=== PATIENT | female | born 1940 | race Caucasian/White ===

== ENCOUNTER 2016-11-13 08:48 | Outpatient (CLI) ==
--- NOTE | 2016-11-13 10:21 | MAMMO ---
EXAM: Left digital screening mammogram History: Screening, history of right mastectomy Comparison: Left screening mammogram 10/01/2015 Findings: MLO and CC views of the left breast demonstrate scattered fibroglandular breast parenchym a. There are no dominant masses, no suspicious microcalcifications and no architectural distortions Impression: Stable negative left mammogram. Recommend followup routine screening left mammogram in 1 year. BIRADS 1
== END 2016-11-13 08:49 | disposition home or self-care (01) ==
LOC: RAD 08:48
PROVIDERS: ATTEND Internal Medicine Hematology & Oncology
DX: Z12.31 Encounter for screening mammogram for malignant neoplasm of breast (principal)

== ENCOUNTER 2018-02-08 08:40 | Outpatient (CLI) ==
--- NOTE | 2018-02-09 09:52 | MAMMO ---
EXAM: Digital screening mammogram with tomosynthesis HISTORY: Screening, history of right mastectomy. COMPARISON: 11/13/2016 FINDINGS: Digital MLO and CC views of the left breast were performed. Tomosynthesis was performed. Computer aided detection utilized. There are scattered fibroglandular densities. There is no evid ence for mass, asymmetry, distortion, or suspicious calcifications in either breast. IMPRESSION: 1. No evidence of malignancy in the eft breast. 2. Annual screening mammogram is recommended in one year. BIRADS category 1, negative examination
== END 2018-02-08 08:41 | disposition home or self-care (01) ==
LOC: RAD 08:40
PROVIDERS: ATTEND Family Medicine
DX: Z12.31 Encounter for screening mammogram for malignant neoplasm of breast (principal)

== ENCOUNTER 2018-09-23 15:22 | Outpatient (CLI) | END 2018-09-23 15:23 | disposition home or self-care (01) | LOC: RAD 15:22 | PROVIDERS: ATTEND Family Medicine | DX: R06.02 Shortness of breath (principal); Z98.890 Other specified postprocedural states | CPT/HCPCS: 36415; 80048; 85025 ==